=== PATIENT | male | born 1965 | race Caucasian/White ===

== ENCOUNTER → 2020-12-29 | Outpatient (CLI) | payer BC, SELFPAY ==
[~2020-12-29] MED LIST: ASPIRIN81 MG PO; ATORVASTATIN CA10 MG PO; LANSOPRAZOLE30 MG PO; LISINOPRIL20 MG PO; LOPRESSOR 50 MG50 MG PO; VITAMIN C125 MG PO; VITAMIN D 40400 UNIT PO
== END ==
LOC: HEART 5 13:30
DX: I20.9 Angina pectoris, unspecified (principal); I50.30 Unspecified diastolic (congestive) heart failure; I07.1 Rheumatic tricuspid insufficiency
CPT/HCPCS: 93306

== ENCOUNTER → 2020-12-30 | Outpatient (CLI) | payer BC, SELFPAY | LOC: HEART 5 12-29 09:38 | DX: I20.9 Angina pectoris, unspecified (principal) | CPT/HCPCS: 78452; A9502 ==

== ENCOUNTER → 2020-12-31 | Outpatient (CLI) | payer BC, SELFPAY ==
[2020-12-31 17:08] LABS: HEMOGLOBIN 16.8 gm/dl (14.0-17.5); RED BLOOD COUNT 5.41 M/UL (4.20-5.50); WHITE BLOOD COUNT 17.6 K/UL (4.5-11.0)
[2020-12-31 17:26] LABS: BUN/CREATININE RATIO 21 (0-10)
== END ==
LOC: LAB 16:44
PROVIDERS: Internal Medicine Cardiovascular Disease
DX: I20.9 Angina pectoris, unspecified (principal); I10 Essential (primary) hypertension; R94.39 Abnormal result of other cardiovascular function study
CPT/HCPCS: 36415; 71046; 80048; 85025

== ENCOUNTER → 2021-01-01 | Outpatient (CLI) | payer BC, SELFPAY | END | disposition home or self-care (01) | LOC: CATH 07:16 | DX: R07.89 Other chest pain (principal); R94.39 Abnormal result of other cardiovascular function study; I20.8 Other forms of angina pectoris; I10 Essential (primary) hypertension; E78.5 Hyperlipidemia, unspecified; Z20.822 Contact with and (suspected) exposure to COVID-19; Z82.49 Family history of ischemic heart disease and other diseases of the circulatory system; Z79.82 Long term (current) use of aspirin; Z79.899 Other long term (current) drug therapy | CPT/HCPCS: 87635; 99152; C1769; C1894; J1644; J2250; J3010; J7030; Q9967 ==

== ENCOUNTER → 2021-02-18 | Outpatient (CLI) | payer BC, SELFPAY ==
[2021-02-18 08:18] LABS: HEMOGLOBIN 15.1 gm/dl (14.0-17.5); RED BLOOD COUNT 5.09 M/UL (4.20-5.50); WHITE BLOOD COUNT 8.9 K/UL (4.5-11.0)
[2021-02-18 13:23] LABS: BUN/CREATININE RATIO 14 (0-10)
== END ==
LOC: LAB 06:25
PROVIDERS: Internal Medicine Cardiovascular Disease
DX: E78.2 Mixed hyperlipidemia (principal)
CPT/HCPCS: 36415; 80053; 80061; 82550; 85025

== ENCOUNTER → 2021-08-13 | Outpatient (CLI) | payer BC ==
[2021-08-13 09:19] LABS: HEMOGLOBIN 16.2 gm/dl (14.0-17.5); RED BLOOD COUNT 5.29 M/UL (4.20-5.50); WHITE BLOOD COUNT 7.7 K/UL (4.5-11.0)
[2021-08-13 10:08] LABS: BUN/CREATININE RATIO 13 (0-10)
== END ==
LOC: LAB 06:34
PROVIDERS: Internal Medicine Cardiovascular Disease
DX: Z12.5 Encounter for screening for malignant neoplasm of prostate (principal); I10 Essential (primary) hypertension; E78.2 Mixed hyperlipidemia
CPT/HCPCS: 36415; 80053; 80061; 82550; 84153; 85025

== ENCOUNTER → 2022-02-17 | Outpatient (CLI) | payer BC ==
[2022-02-17 08:07] LABS: HEMOGLOBIN 15.1 gm/dl (14.0-17.5); RED BLOOD COUNT 4.98 M/UL (4.20-5.50)
[2022-02-17 09:13] LABS: BUN/CREATININE RATIO 16 (0-10)
== END ==
LOC: LAB 06:41
PROVIDERS: Internal Medicine Cardiovascular Disease
DX: Z12.5 Encounter for screening for malignant neoplasm of prostate (principal); I10 Essential (primary) hypertension; E78.2 Mixed hyperlipidemia
CPT/HCPCS: 36415; 80053; 80061; 82550; 84153; 85025